=== PATIENT | male | born 1980 | race Caucasian/White ===

== ENCOUNTER 2018-05-22 12:03 | Emergency (ER) | payer OTHER ==
[2018-05-22 12:19] VITALS: TEMP 98
[2018-05-22] MEDS ORDERED: ONDANSETRON 4 MG/2 ML VIAL IVP STA (12:32)
[2018-05-22] MEDS ORDERED: SODIUM CHLORIDE 0.9% 1,000 ML IV STA (12:32)
[2018-05-22] MEDS ORDERED: MORPHINE SULFATE 4 MG/ML SYRINGE IV STA (12:33)
[2018-05-22 13:13] LABS: Appearance,Urine Clear (Clear); Basophils # (A) 0.1 k/uL (0-0.2); Basophils % (A) 0 %; Bilirubin,Urine Negative (Negative); Blood,Urine Negative (Negative); Color,Urine Yellow; Eosinophils # (A) 0.3 k/uL (0-0.7); Eosinophils % (A) 2 %; Glucose,Urine (UA) Negative (Negative); HCT 50.1 % (39.0-53.0); HGB 16.3 gm/dL (13.0-17.5); Ketones,Urine Negative (Negative); Leukocyte Esterase,Urine Negative (Negative); Lymphocytes # (A) 2.8 k/uL (1.0-4.8); Lymphocytes % (A) 20 %; MCH 29.1 pg (25.0-35.0); MCHC 32.5 g/dL (31.0-37.0); MCV 89.5 fL (80.0-100.0); Mean Platelet Volume 6.4; Monocytes # (A) 0.6 k/uL (0-1.0); Monocytes % (A) 4 %; Neutrophils % (A) 72 %; Nitrite,Urine Negative (Negative); PH, Urine 6.5 (5.0-8.0); Platelet Count 350 k/uL (150-450); Protein,Urine Negative (Negative); RBC 5.59 m/uL (4.30-5.90); RDW 12.5 % (11.5-15.5); Specific Gravity,Urine 1.015 (1.001-1.035); Urobilinogen,Urine <2.0 mg/dL (<2.0); WBC 13.8 k/uL (3.8-10.6)
--- NOTE | 2018-05-22 13:21 | ED ---
General Adult HPI - General Chief complaint: Fall Stated complaint: BACK INJURY FROM FALL DOWN 25 STEPS Source: patient, RN notes reviewed, old records reviewed Mode of arrival: ambulatory Limitations: no limitations - History of Present Illness Initial comments: 37-year-old male patient with no pertinent past medical history presents to ED after sustaining a fall 2 days ago. Patient states that mohel he slipped on carpet at the top of stairs, slid on his backside down approximately 20 stairs. Patient reports that when he received by her mother stairs he felt pain in his lumbar spine region. Patient denies any trauma to head or neck, use of blood thinners. Patient states that he had some paralumbar muscle spasms the next 2 days, which are primarily resolved. Patient does have mild amount of left thoracic back pain. Patient's primary complaint today is right lower quadrant abdominal pain. Patient states that the pain has been going on for approximately 36 hours. Patient states that it is localized to his right lower quadrant region. Patient has had some nausea without emesis. Patient denies fever/chills, diarrhea. Patient denies loss of bowel or bladder control , lower extremity weakness, paresthesias, saddle anesthesia, IV drug use. Systemic: Pt denies fatigue, myalgia, fever/chills, rash. Pt denies weakness, night sweats, weight loss. Neuro: Pt denies headache, visual disturbances, syncope or pre-syncope. HEENT: Pt denies ocular discharge or irritation, otalgia, rhinorrhea, pharyngitis or notable lymphadenopathy. Cardiopulmonary: Pt denies chest pain, SOB, heart palpitations, dyspnea on exertion. : Pt denies dysuria, burning w/ urination, frequency/urgency. Denies new onset urinary or bowel incontinence. MSK: Pt denies myalgia, loss of strength or function in extremities. Neuro: Pt denies new onset weakness, paresthesias. - Related Data Home Medications Medication Instructions Recorded Confirmed Aspirin/Acetaminophen/Caffeine 2 tab PO DAILY PRN 05/22/18 05/22/18 [Excedrin Extra Strength Caplet] Previous Rx's Medication Instructions Recorded Ibuprofen [Motrin] 600 mg PO Q6HR PRN #40 day 05/22/18 Allergies Allergy/AdvReac Type Severity Reaction Status Date / Time Penicillins Allergy Rash/Hives Verified 05/22/18 12:37 Review of Systems ROS Statement: Those systems with pertinent positive or pertinent negative responses have been documented in the HPI. ROS Other: All systems not noted in ROS Statement are negative. Past Medical History Past Medical History: Cancer Additional Past Medical History / Comment(s): Testicular History of Any Multi-Drug Resistant Organisms: None Reported Additional Past Surgical History / Comment(s): TESTICULAR CANCER- 2 YEARS AGO- SURGERY AT THAT TIME Past Psychological History: No Psychological Hx Reported Smoking Status: Current every day smoker Past Alcohol Use History: Occasional Past Drug Use History: Marijuana General Exam - General Exam Comments Initial Comments: Constitutional: NAD, AOX3, Pt has pleasant affect. HEENT: NC/AT, trachea midline, neck supple, no lymphadenopathy. Posterior pharynx non erythematous, without exudates. External ears appear normal, without discharge. Mucous membranes moist. Eyes PERRLA, EOM intact. There is no scleral icterus. No pallor noted. Cardiopulmonary: RRR, no murmurs, rubs or gallops, no JVD noted. Lungs CTAB in anterior and posterior [place]. No peripheral edema. Abdominal exam: Abdomen soft and non-distended. Abdomen mildly tender to palpation in RLQ at mcburneys point, psoas and rosvings sign negative. Bowel sounds active in LLQ. No hepatosplenomegaly. No ecchymosis Neuro: CN II-XII intact. No nuchal rigidity. full active ROM in cervical spine. MSK: No midline cervical, thoracic or lumbat tenderness. Mild L perithoracic tenderness to palpation. Mild L ulnar tenderness to palpation. Quadriceps and psoas strength 5/5. Achillies and patellar reflex 2/4 bilaterally. Pt ambulatory. No posterior calf tenderness bilaterally, homans sign negative bilaterally. Posterior tibialis and radial pulse +2 bilaterally. Sensation intact in upper and lower extremities. Full active ROM in upper and lower extremities. Limitations: no limitations Course Vital Signs 05/22/18 05/22/18 12:16 16:59 Temperature 98 F Pulse Rate 91 71 Respiratory 20 18 Rate Blood Pressure 142/88 132/80 O2 Sat by Pulse 97 100 Oximetry Medical Decision Making - Medical Decision Making 37-year-old male patient with no pertinent past medical history presents to ED after sustaining a fall 2 days ago. Patient states that mohel he slipped on carpet at the top of stairs, slid on his backside down approximately 20 stairs. Patient reports that when he received by her mother stairs he felt pain in his lumbar spine region. Patient denies any trauma to head or neck, use of blood thinners. Patient states that he had some paralumbar muscle spasms the next 2 days, which are primarily resolved. Patient does have mild amount of left thoracic back pain. Patient's primary complaint today is right lower quadrant abdominal pain. Patient states that the pain has been going on for approximately 36 hours. Patient states that it is localized to his right lower quadrant region. Patient has had some nausea without emesis. Physical exam displayed: Abdomen soft and non-distended. Abdomen mildly tender to palpation in RLQ at mcburneys point, psoas and rosvings sign negative. Bowel sounds active in LLQ. No midline cervical, thoracic or lumbat tenderness. Mild L perithoracic tenderness to palpation. Mild L ulnar tenderness to palpation. Quadriceps and psoas strength 5/5. Achillies and patellar reflex 2/4 bilaterally. Pt ambulatory. No posterior calf tenderness bilaterally, homans sign negative bilaterally. Posterior tibialis and radial pulse +2 bilaterally. Neuro exam wnl. No focal deficit or facial droop. Laboratory investigations revealed mildly elevated white blood cell count of 13.8, likely secondary to recent trauma. CMP was non-impressive. Amylase mildly elevated at 137. UA did not display acute pathology. Thoracic plain film displayed compression deformities of T11 and T12 without radiographic evidence of retropulsion. Plain film of bilateral ribs did not display acute pathology. R radius ulna plain film did not display any acute pathology. Plain film of chest displayed previously described vertebral compression fx, no acute cardiopulmonary process. CT abdomen and pelvis did not display any acute osseous process. It did display numerous fluid filled dilated small bowel loops, which may reflect an ileus, enteritis or partial obstruction. CT also demonstrated enlarged prostate. Pt tetanus updated. All findings were explained to patient at length. Patient is currently passing gas, had bowel movement yesterday, pain was resolved with analgesic, Zofran. Shared decision making, offered patient admission for treatment of possible small bowel obstruction. Patient declined admission, would rather monitor symptoms, follow up with his primary care provider. Patient verbalized understanding that he needs to return to ED immediately if he stops passing flatus, has no abdominal pain, has not had bowel movement. Additionally discussed findings of T11, T12 vertebral compression fracture at length patient. Explained to patient that he cannot do any strenuous activity, absolutely no lifting, no bending of thoracic spine until orthopedic follow-up. Patient was prescribed a TLSO brace that he will wear until orthopedic follow up. Pt verbalized understanding. Patient to follow up with PCP in 1-2 days. Patient to follow up with orthopedic consult in 1-2 days. Patient to return to ED if new s/sx devleop or if condition worsens in anyway. Case discussed in depth with Dr. Singletary. - Lab Data Result diagrams: 05/22/18 12:50 05/22/18 12:50 Lab Results 05/22/18 05/22/18 05/22/18 Range/Units 12:50 12:50 12:50 WBC 13.8 H (3.8-10.6) k/uL RBC 5.59 (4.30-5.90) m/uL Hgb 16.3 (13.0-17.5) gm/dL Hct 50.1 (39.0-53.0) % MCV 89.5 (80.0-100.0) fL MCH 29.1 (25.0-35.0) pg MCHC 32.5 (31.0-37.0) g/dL RDW 12.5 (11.5-15.5) % Plt Count 350 (150-450) k/uL Neutrophils % 72 % Lymphocytes % 20 % Monocytes % 4 % Eosinophils % 2 % Basophils % 0 % Neutrophils # 10.0 H (1.3-7.7) k/uL Lymphocytes # 2.8 (1.0-4.8) k/uL Monocytes # 0.6 (0-1.0) k/uL Eosinophils # 0.3 (0-0.7) k/uL Basophils # 0.1 (0-0.2) k/uL Sodium 140 (137-145) mmol/L Potassium 4.7 (3.5-5.1) mmol/L Chloride 106 (98-107) mmol/L Carbon Dioxide 25 (22-30) mmol/L Anion Gap 9 mmol/L BUN 13 (9-20) mg/dL Creatinine 0.85 (0.66-1.25) mg/dL Est GFR (CKD-EPI)AfAm >90 (>60 ml/min/1.73 sqM) Est GFR (CKD-EPI)NonAf >90 (>60 ml/min/1.73 sqM) Glucose 104 H (74-99) mg/dL Plasma Lactic Acid Osei 1.1 (0.7-2.0) mmol/L Calcium 9.9 (8.4-10.2) mg/dL Total Bilirubin 0.9 (0.2-1.3) mg/dL AST 44 (17-59) U/L ALT 48 (21-72) U/L Alkaline Phosphatase 62 (38-126) U/L Total Protein 8.3 H (6.3-8.2) g/dL Albumin 5.1 H (3.5-5.0) g/dL Amylase 137 H (30-110) U/L Lipase 176 (23-300) U/L Urine Color Urine Appearance (Clear) Urine pH (5.0-8.0) Ur Specific [place] (1.001-1.035) Urine Protein (Negative) Urine Glucose (UA) (Negative) Urine Ketones (Negative) Urine Blood (Negative) Urine Nitrite (Negative) Urine Bilirubin (Negative) Urine Urobilinogen (<2.0) mg/dL Ur Leukocyte Esterase (Negative) 05/22/18 Range/Units 12:50 WBC (3.8-10.6) k/uL RBC (4.30-5.90) m/uL Hgb (13.0-17.5) gm/dL Hct (39.0-53.0) % MCV (80.0-100.0) fL MCH (25.0-35.0) pg MCHC (31.0-37.0) g/dL RDW (11.5-15.5) % Plt Count (150-450) k/uL Neutrophils % % Lymphocytes % % Monocytes % % Eosinophils % % Basophils % % Neutrophils # (1.3-7.7) k/uL Lymphocytes # (1.0-4.8) k/uL Monocytes # (0-1.0) k/uL Eosinophils # (0-0.7) k/uL Basophils # (0-0.2) k/uL Sodium (137-145) mmol/L Potassium (3.5-5.1) mmol/L Chloride (98-107) mmol/L Carbon Dioxide (22-30) mmol/L Anion Gap mmol/L BUN (9-20) mg/dL Creatinine (0.66-1.25) mg/dL Est GFR (CKD-EPI)AfAm (>60 ml/min/1.73 sqM) Est GFR (CKD-EPI)NonAf (>60 ml/min/1.73 sqM) Glucose (74-99) mg/dL Plasma Lactic Acid [place]se[place] (0.7-2.0) mmol/L Calcium (8.4-10.2) mg/dL Total Bilirubin (0.2-1.3) mg/dL AST (17-59) U/L ALT (21-72) U/L Alkaline Phosphatase (38-126) U/L Total Protein (6.3-8.2) g/dL Albumin (3.5-5.0) g/dL Amylase (30-110) U/L Lipase (23-300) U/L Urine Color Yellow Urine Appearance Clear (Clear) Urine pH 6.5 (5.0-8.0) Ur Specific [place] 1.015 (1.001-1.035) Urine Protein Negative (Negative) Urine Glucose (UA) Negative (Negative) Urine Ketones Negative (Negative) Urine Blood Negative (Negative) Urine Nitrite Negative (Negative) Urine Bilirubin Negative (Negative) Urine Urobilinogen <2.0 (<2.0) mg/dL Ur Leukocyte Esterase Negative (Negative) Disposition Clinical Impression: Vertebral compression fracture, Abdominal pain Disposition: HOME SELF-CARE Condition: Fair Instructions: Vertebral Compression Fracture (ED) Additional Instructions: Patient to adhere to previously discussed treatment plan and will take medication(s) as directed. Patient to follow up with PCP in 1-2 days. Patient to return to ED if symptoms do not improve. Prescriptions: Ibuprofen [Motrin] 600 mg PO Q6HR PRN #40 day PRN Reason: Pain Is patient prescribed a controlled substance at d/c from ED?: No Referrals: None,Stated [Primary Care Provider] - 1-2 days Filiberto Alicea MD [Medical Doctor] - 1-2 days Time of Disposition: 16:46
[2018-05-22 13:22] LABS: ALT 48 U/L (21-72); AST 44 U/L (17-59); Albumin 5.1 g/dL (3.5-5.0); Alkaline Phosphatase 62 U/L (38-126); Amylase 137 U/L (30-110); Anion Gap 9 mmol/L; Blood Urea Nitrogen 13 mg/dL (9-20); Calcium 9.9 mg/dL (8.4-10.2); Carbon Dioxide 25 mmol/L (22-30); Chloride 106 mmol/L (98-107); Glucose 104 mg/dL (74-99); Lipase 176 U/L (23-300); Potassium 4.7 mmol/L (3.5-5.1); Sodium 140 mmol/L (137-145); Total Bilirubin 0.9 mg/dL (0.2-1.3); Total Protein 8.3 g/dL (6.3-8.2)
--- NOTE | 2018-05-22 14:20 | XR ---
EXAMINATION TYPE: XR chest 2V DATE OF EXAM: 05/22/2018 COMPARISON: NONE HISTORY: Chest pain after fall TECHNIQUE: Frontal and lateral views of the chest are obtained. FINDINGS: There is no focal air space opacity, pleural effusion, or pneumothorax seen. The cardiac silhouette size is within normal limits. Mild compression deformity is seen of the approximately T11 vertebral body. IMPRESSION: No acute cardiopulmonary process. Mild compression deformity of the approximately T11 ve rtebral body will be further assessed on the thoracic spine radiographs of the same date.
--- NOTE | 2018-05-22 14:23 | XR ---
EXAMINATION TYPE: XR thoracic spine 2V DATE OF EXAM: 05/22/2018 CLINICAL HISTORY: Fall with subsequent back pain TECHNIQUE: Frontal, lateral, and swimmer's view of thoracic spine are obtained. COMPARISON: None. FINDINGS: There is anterior wedging of the T11 vertebral body with vertebral body height loss of appr oximately 20% and vertebral body height loss of the inferior endplate of the T12 vertebral body of ap proximately 30%. The remainder of the thoracic spine demonstrate maintained vertebral body heights. A lignment is maintained throughout the thoracic spine. No radiographic evidence of retropulsion. Visua lized portions of the ribs are intact. IMPRESSION: Compression deformities of the T11 and T12 vertebral bodies without radiographic evidence of retropulsion presumed to be acute in this patient with a provided history of trauma.
--- NOTE | 2018-05-22 14:24 | XR ---
EXAMINATION TYPE: XR forearm RT DATE OF EXAM: 05/22/2018 CLINICAL HISTORY: Fall with right forearm pain TECHNIQUE: Two views of the right forearm are obtained. COMPARISON: None. FINDINGS: There is no acute fracture or dislocation seen in the right radius or ulna. Old healed fr acture deformity is seen of the ulnar styloid process. The right elbow and wrist joints appear within normal limits. The overlying soft tissue appears within normal limits. IMPRESSION: There is no acute fracture or dislocation seen in the right radius or ulna.
[2018-05-22] MEDS ORDERED: DIPH,PERTUS(ACELL)TETVAC-LF 0.5 ML VIAL IM ONE (14:25)
--- NOTE | 2018-05-22 14:34 | XR ---
EXAMINATION TYPE: XR ribs bilateral DATE OF EXAM: 05/22/2018 COMPARISON: Chest radiograph of the same date HISTORY: Chest pain, rib pain and back pain after fall. TECHNIQUE: Frontal and oblique views of the bilateral ribs were obtained. FINDINGS: There is no evidence of acute displaced fracture of the bilateral ribs nor callused healed rib fracture deformity. Visualized lungs are discussed on the chest radiograph of the same date. IMPRESSION: No acute displaced rib fracture nor healed callused rib fracture deformity.
--- NOTE | 2018-05-22 15:12 | CT ---
EXAMINATION TYPE: CT abdomen pelvis w con DATE OF EXAM: 05/22/2018 COMPARISON: 09/06/2014 HISTORY: Pain CT DLP: 725.2 mGycm Automated exposure control for dose reduction was used. CONTRAST: CT scan of the abdomen pelvis is performed , patient injected with 100 mL of Isovue 300. FINDINGS- LUNG BASES- No significant abnormality is appreciated. LIVER/GB- No gross abnormality is appreciated. PANCREAS- No gross abnormality is seen. SPLEEN- No gross abnormality is seen. ADRENALS- No gross abnormality is seen. KIDNEYS/BLADDER- no hydronephrosis nephrolithiasis or renal mass. BOWEL-nonspecific gas pattern. There are number of fluid-filled small bowel loops. No definite transi tion point.. Normal appendix. LYMPH NODES- No greater than 1cm abdominal or pelvic lymph nodes areappreciated. OSSEOUS STRUCTURES- No osseous destructive process. L1 limbus vertebra and prominent endplate Schmor l's nodes at the thoracolumbar junction at multiple levels stable from the prior CT scan. Spina bifid a occulta S1. OTHER- aorta of normal caliber. Prostate prominent in size. IMPRESSION- 1. Numerous fluid-filled dilated small bowel loops. Differential include an ileus, enteritis or parti al obstruction. Correlate clinically. 2. Prostate is enlarged.
[2018-05-22 17:00] VITALS: BP 132/80; PULSE 71; RESP 18
== END 2018-05-22 16:59 | disposition home or self-care (01) ==
LOC: EC 12:03
DX: S22.089A Unspecified fracture of T11-T12 vertebra, initial encounter for closed fracture (principal); D72.829 Elevated white blood cell count, unspecified; R74.8 Abnormal levels of other serum enzymes; N40.0 Benign prostatic hyperplasia without lower urinary tract symptoms; F17.200 Nicotine dependence, unspecified, uncomplicated; Z88.0 Allergy status to penicillin; Z85.47 Personal history of malignant neoplasm of testis; Z53.29 Procedure and treatment not carried out because of patient's decision for other reasons; Z23 Encounter for immunization; W10.9XXA Fall (on) (from) unspecified stairs and steps, initial encounter
CPT/HCPCS: 36415; 80053; 82150; 83605; 83690; 85025; 81003; 72070; 71110; 73090; 71046; 74177; 90715; 99284; 96374; 96375; 96361; 90471; J2270; J2405; Q9967

== ENCOUNTER 2018-06-08 14:56 | Emergency (ER) | payer OTHER ==
[2018-06-08 15:02] VITALS: RESP 18; TEMP 98.1
[2018-06-08] MEDS ORDERED: SODIUM CHLORIDE 0.9% 1,000 ML IV STA (15:37)
[2018-06-08] MEDS ORDERED: PANTOPRAZOLE 40 MG/10 ML VIAL IVP STA (15:37)
--- NOTE | 2018-06-08 15:37 | ED ---
General Adult HPI - General Chief complaint: Abdominal Pain Stated complaint: Black stool Time Seen by Provider: 06/08/18 15:10 Source: patient, RN notes reviewed Mode of arrival: ambulatory Limitations: no limitations - History of Present Illness Initial comments: 37-year-old male presents to the emergency department for a chief complaint of bloody stools. Patient states that the stool started yesterday. He states he has had 3 since that time. He describes the stools as a dark color in nature. Patient also complains of right-sided lower abdominal pain. Patient states he fell 3 weeks ago and the pain started at that time. Patient states the pain has gotten worse since then. He states he has been nauseous and has not been eating as much as normal. Patient has no other complaints at this time including shortness of breath, chest pain, abdominal pain, vomiting, headache, or visual changes. - Related Data Home Medications Medication Instructions Recorded Confirmed Ciprofloxacin HCl [Cipro] 500 mg PO BID 06/08/18 06/08/18 Dicyclomine [Bentyl] 10 mg PO TID 06/08/18 06/08/18 Docusate [Colace] 100 mg PO TID 06/08/18 06/08/18 metroNIDAZOLE [Flagyl] 500 mg PO BID 06/08/18 06/08/18 Previous Rx's Medication Instructions Recorded Dicyclomine [Bentyl] 20 mg PO TID PRN #20 tablet 06/08/18 Allergies Allergy/AdvReac Type Severity Reaction Status Date / Time adhesive tape Allergy Rash/Hives Verified 06/08/18 15:56 Penicillins Allergy Rash/Hives Verified 06/08/18 15:48 Review of Systems ROS Statement: Those systems with pertinent positive or pertinent negative responses have been documented in the HPI. ROS Other: All systems not noted in ROS Statement are negative. Past Medical History Past Medical History: Cancer Additional Past Medical History / Comment(s): Testicular History of Any Multi-Drug Resistant Organisms: None Reported Additional Past Surgical History / Comment(s): TESTICULAR CANCER- 2 YEARS AGO- SURGERY AT THAT TIME Past Psychological History: No Psychological Hx Reported Smoking Status: Current every day smoker Past Alcohol Use History: Occasional Past Drug Use History: Marijuana General Exam Limitations: no limitations General appearance: alert, in no apparent distress Head exam: Present: atraumatic, normocephalic, normal inspection Eye exam: Present: normal appearance, PERRL, EOMI. Absent: scleral icterus, conjunctival injection, periorbital swelling ENT exam: Present: normal exam, mucous membranes moist Neck exam: Present: normal inspection, full ROM. Absent: tenderness, meningismus, lymphadenopathy Respiratory exam: Present: normal lung sounds bilaterally. Absent: respiratory distress, wheezes, rales, rhonchi, stridor Cardiovascular Exam: Present: regular rate, normal rhythm, normal heart sounds. Absent: systolic murmur, diastolic murmur, rubs, gallop, clicks GI/Abdominal exam: Present: soft, tenderness (tenderness noted to the RLQ with minimal guarding), normal bowel sounds. Absent: distended, guarding, rebound, rigid Rectal exam: Present: normal inspection, other (Marleny JONES present for exam) Neurological exam: Present: alert, oriented X3, CN II-XII intact Psychiatric exam: Present: normal affect, normal mood Course Vital Signs 06/08/18 14:58 Temperature 98.1 F Pulse Rate 88 Respiratory 18 Rate Blood Pressure 147/83 O2 Sat by Pulse 97 Oximetry Medical Decision Making - Medical Decision Making 37-year-old male presents to the emergency department for a chief complaint of bloody stools. Patient states they are dark in nature so concerned him for blood. He complains of right-sided abdominal pain 3 weeks as well. He describes his pain as a cramping pain. On exam patient does have minimal right- sided abdominal tenderness. CBC CMP unremarkable. Hemoglobin 16.3. Occult stool is negative. CT shows large bowel fluid levels consistent with diarrhea, no free air or bowel obstruction. At this time patient will be treated with Bentyl with follow-up to GI or primary care. He will return if he has any worsening symptoms. - Lab Data Result diagrams: 06/08/18 16:06 06/08/18 16:06 Lab Results 06/08/18 06/08/18 06/08/18 Range/Units 16:06 16:06 16:06 WBC 9.6 (3.8-10.6) k/uL RBC 5.40 (4.30-5.90) m/uL Hgb 16.3 (13.0-17.5) gm/dL Hct 47.4 (39.0-53.0) % MCV 87.9 (80.0-100.0) fL MCH 30.1 (25.0-35.0) pg MCHC 34.3 (31.0-37.0) g/dL RDW 12.5 (11.5-15.5) % Plt Count 336 (150-450) k/uL Neutrophils % 67 % Lymphocytes % 25 % Monocytes % 5 % Eosinophils % 1 % Basophils % 0 % Neutrophils # 6.5 (1.3-7.7) k/uL Lymphocytes # 2.4 (1.0-4.8) k/uL Monocytes # 0.4 (0-1.0) k/uL Eosinophils # 0.1 (0-0.7) k/uL Basophils # 0.0 (0-0.2) k/uL Sodium 141 (137-145) mmol/L Potassium 5.1 (3.5-5.1) mmol/L Chloride 110 H (98-107) mmol/L Carbon Dioxide 23 (22-30) mmol/L Anion Gap 8 mmol/L BUN 7 L (9-20) mg/dL Creatinine 0.77 (0.66-1.25) mg/dL Est GFR (CKD-EPI)AfAm >90 (>60 ml/min/1.73 sqM) Est GFR (CKD-EPI)NonAf >90 (>60 ml/min/1.73 sqM) Glucose 102 H (74-99) mg/dL Calcium 9.6 (8.4-10.2) mg/dL Total Bilirubin 0.8 (0.2-1.3) mg/dL AST 49 (17-59) U/L ALT 46 (21-72) U/L Alkaline Phosphatase 50 (38-126) U/L Total Protein 7.7 (6.3-8.2) g/dL Albumin 4.8 (3.5-5.0) g/dL Amylase 127 H (30-110) U/L Lipase 190 (23-300) U/L Urine Color Light Yellow Urine Appearance Clear (Clear) Urine pH 7.0 (5.0-8.0) Ur Specific [place] 1.001 (1.001-1.035) Urine Protein Negative (Negative) Urine Glucose (UA) Negative (Negative) Urine Ketones Negative (Negative) Urine Blood Negative (Negative) Urine Nitrite Negative (Negative) Urine Bilirubin Negative (Negative) Urine Urobilinogen <2.0 (<2.0) mg/dL Ur Leukocyte Esterase Negative (Negative) Stool Occult Blood (Negative) 06/08/18 Range/Units 16:15 WBC (3.8-10.6) k/uL RBC (4.30-5.90) m/uL Hgb (13.0-17.5) gm/dL Hct (39.0-53.0) % MCV (80.0-100.0) fL MCH (25.0-35.0) pg MCHC (31.0-37.0) g/dL RDW (11.5-15.5) % Plt Count (150-450) k/uL Neutrophils % % Lymphocytes % % Monocytes % % Eosinophils % % Basophils % % Neutrophils # (1.3-7.7) k/uL Lymphocytes # (1.0-4.8) k/uL Monocytes # (0-1.0) k/uL Eosinophils # (0-0.7) k/uL Basophils # (0-0.2) k/uL Sodium (137-145) mmol/L Potassium (3.5-5.1) mmol/L Chloride (98-107) mmol/L Carbon Dioxide (22-30) mmol/L Anion Gap mmol/L BUN (9-20) mg/dL Creatinine (0.66-1.25) mg/dL Est GFR (CKD-EPI)AfAm (>60 ml/min/1.73 sqM) Est GFR (CKD-EPI)NonAf (>60 ml/min/1.73 sqM) Glucose (74-99) mg/dL Calcium (8.4-10.2) mg/dL Total Bilirubin (0.2-1.3) mg/dL AST (17-59) U/L ALT (21-72) U/L Alkaline Phosphatase (38-126) U/L Total Protein (6.3-8.2) g/dL Albumin (3.5-5.0) g/dL Amylase (30-110) U/L Lipase (23-300) U/L Urine Color Urine Appearance (Clear) Urine pH (5.0-8.0) Ur Specific [place] (1.001-1.035) Urine Protein (Negative) Urine Glucose (UA) (Negative) Urine Ketones (Negative) Urine Blood (Negative) Urine Nitrite (Negative) Urine Bilirubin (Negative) Urine Urobilinogen (<2.0) mg/dL Ur Leukocyte Esterase (Negative) Stool Occult Blood Negative (Negative) Disposition Clinical Impression: Abdominal pain Disposition: HOME SELF-CARE Condition: Good Instructions (If sedation given, give patient instructions): Abdominal Pain (ED ) Additional Instructions: Please follow up with GI or primary care in 1-2 days. Take Bentyl as needed for pain. Return to the emergency department if you have any worsening symptoms. Prescriptions: Dicyclomine [Bentyl] 20 mg PO TID PRN #20 tablet PRN Reason: Pain Is patient prescribed a controlled substance at d/c from ED?: No Referrals: James Rodgers MD [Primary Care Provider] - 1-2 days Caio Clarke MD [STAFF PHYSICIAN] - 1-2 days Time of Disposition: 17:28
[2018-06-08] MEDS ORDERED: MORPHINE SULFATE 4 MG/ML SYRINGE IVP STA (15:38)
[2018-06-08 16:18] LABS: Basophils % (A) 0 %; Eosinophils # (A) 0.1 k/uL (0-0.7); Eosinophils % (A) 1 %; HCT 47.4 % (39.0-53.0); HGB 16.3 gm/dL (13.0-17.5); Lymphocytes # (A) 2.4 k/uL (1.0-4.8); Lymphocytes % (A) 25 %; MCH 30.1 pg (25.0-35.0); MCHC 34.3 g/dL (31.0-37.0); MCV 87.9 fL (80.0-100.0); Mean Platelet Volume 6.9; Monocytes # (A) 0.4 k/uL (0-1.0); Monocytes % (A) 5 %; Neutrophils # (A) 6.5 k/uL (1.3-7.7); Neutrophils % (A) 67 %; Platelet Count 336 k/uL (150-450); RDW 12.5 % (11.5-15.5); WBC 9.6 k/uL (3.8-10.6)
[2018-06-08 16:22] LABS: Appearance,Urine Clear (Clear); Bilirubin,Urine Negative (Negative); Blood,Urine Negative (Negative); Color,Urine Light Yellow; Glucose,Urine (UA) Negative (Negative); Ketones,Urine Negative (Negative); Leukocyte Esterase,Urine Negative (Negative); Nitrite,Urine Negative (Negative); Protein,Urine Negative (Negative); Specific Gravity,Urine 1.001 (1.001-1.035); Urobilinogen,Urine <2.0 mg/dL (<2.0)
[2018-06-08 16:31] LABS: ALT 46 U/L (21-72); AST 49 U/L (17-59); Albumin 4.8 g/dL (3.5-5.0); Alkaline Phosphatase 50 U/L (38-126); Amylase 127 U/L (30-110); Anion Gap 8 mmol/L; Blood Urea Nitrogen 7 mg/dL (9-20); Calcium 9.6 mg/dL (8.4-10.2); Carbon Dioxide 23 mmol/L (22-30); Chloride 110 mmol/L (98-107); Glucose 102 mg/dL (74-99); Lipase 190 U/L (23-300); Potassium 5.1 mmol/L (3.5-5.1); Sodium 141 mmol/L (137-145); Total Bilirubin 0.8 mg/dL (0.2-1.3); Total Protein 7.7 g/dL (6.3-8.2)
--- NOTE | 2018-06-08 17:08 | CT ---
EXAMINATION TYPE: CT abdomen pelvis w con DATE OF EXAM: 06/08/2018 COMPARISON: 05/22/2018 HISTORY: RLQ pain and black tarry stool CT DLP: 494.6 mGycm Automated exposure control for dose reduction was used. TECHNIQUE: Helical acquisition of images was performed from the lung bases through the pelvis. CONTRAST: Performed without Oral Contrast and with IV Contrast, patient injected with 100 mL of Isovue 300. FINDINGS: Lung bases are clear. There is no pleural effusion. Heart size is normal. There is no pericardial eff usion. Liver spleen pancreas gallbladder appear normal. Bile ducts are not dilated. Stomach appears n ormal. There is no adrenal mass. Kidneys show satisfactory contrast opacification. There is no hydronephrosi s. Ureters are not dilated. Bladder distends smoothly. There is some prostatic calcification. There a re large bowel fluid levels down to the rectum. There is no sign of a bowel obstruction. There are no dilated loops. There is no retroperitoneal adenopathy. There is no mesenteric edema. There is no asc ites. There is no sign of free air. The appendix is partly filled with air and appears normal. Prosta te is enlarged for the patient's age and measures 4.5 cm. The lumbar vertebra show no acute fracture. There is 20% anterior wedging of L1 vertebra that appears old. IMPRESSION: LARGE BOWEL FLUID LEVELS CONSISTENT WITH DIARRHEA. NO FREE AIR. NO BOWEL OBSTRUCTION. THERE IS CLEARI NG OF THE DISTENDED SMALL BOWEL COMPARED TO OLD EXAM. Enlarged prostate.
[2018-06-08 18:06] VITALS: BP 108/64; PULSE 76
[2018-06-08] MEDS ORDERED: DICYCLOMINE 20 MG TAB PO STA (18:15)
== END 2018-06-08 18:21 | disposition home or self-care (01) ==
LOC: EC 14:56
DX: R10.30 Lower abdominal pain, unspecified (principal); R11.0 Nausea; K92.1 Melena; F17.200 Nicotine dependence, unspecified, uncomplicated; Z85.47 Personal history of malignant neoplasm of testis; Z98.890 Other specified postprocedural states; Z79.899 Other long term (current) drug therapy; Z88.0 Allergy status to penicillin; Z91.048 Other nonmedicinal substance allergy status
CPT/HCPCS: 36415; 80053; 82150; 83690; 85025; 82272; 81003; 74177; 99284; 96374; 96375; 96361 ×2; J2270; C9113; Q9967

== ENCOUNTER → 2018-07-07 | Outpatient (CLI) | payer OTHER ==
--- NOTE | 2018-07-07 11:24 | CT ---
EXAMINATION TYPE: CT abdomen pelvis w con DATE OF EXAM: 07/07/2018 COMPARISON: 06/08/2018 HISTORY: 37-year-old male with and neuritis, RLQ pain TECHNIQUE: Contiguous axial scanning of the abdomen and pelvis following administration of 100 ml Iso susana 300 IV contrast. Delayed images through the kidneys and coronal/sagittal reconstructions perform ed. CT DLP: 337.7 mGycm Automated exposure control for dose reduction was used. FINDINGS: Heart normal size without pericardial effusion. Tiny hiatal hernia. Some strandy atelectasis at the p osterior lung bases without pleural effusion. No focal lesion or biliary ductal dilatation. Portal venous system is patent. Gallbladder, adrenal glands, kidneys, spleen, and pancreas appear within normal limits. Some prominent jejunal loops in the left side of the abdomen measuring up to 3.5 cm no transition poi nt. These loops show mild generalized fold thickening. No mesenteric or retroperitoneal lymphadenopathy. Oral contrast has progressed into the proximal sigmoid. Normal appendix. No pericolonic inflammatory change appreciated. Bladder is distended. Prostate gland mildly enlarged at 4.5 cm wide. No abnormal fluid collection in the pelvis or evidence of pelvic lymphadenopathy. Bones: No osseous destructive process. Stable limbus vertebra of L1 and mild superior endplate deformity of T12 with Schmorl's node likely sequela of remote injury. IMPRESSION: 1. SOME PATULOUS JEJUNAL LOOPS IN THE LEFT SIDE OF THE ABDOMEN MEASURING UP TO 3.5 CM WITH SOME CORRE SPONDING GENERALIZED JEJUNAL FOLD THICKENING. CORRELATE FOR A MILD NONSPECIFIC ENTERITIS. NO TRANSITI ON POINT TO SUGGEST OBSTRUCTION. ORAL CONTRAST HAS REACHED THE PROXIMAL SIGMOID. 2. MILD PROSTATOMEGALY (4.5 CM WIDE). 3. TINY HIATAL HERNIA.
== END | disposition home or self-care (01) ==
LOC: RADCTMAIN 08:24
PROVIDERS: ATTEND Surgery
DX: K63.89 Other specified diseases of intestine (principal); N40.0 Benign prostatic hyperplasia without lower urinary tract symptoms
CPT/HCPCS: 74177; Q9967

== ENCOUNTER 2018-07-16 11:49 | Day surgery (SDC) | payer OTHER ==
[2018-07-15 09:43] VITALS: BMI 23.7
[~2018-07-16 11:49] MED LIST: LACTATED RINGERS 1,000 ML IV SCH; LIDOCAINE 1% 20 ML VIAL (10MG/ML) FOR IV START INTRADERMA PRN
[2018-07-16 12:25] VITALS: RESP 18; TEMP 98.2
[2018-07-16] MEDS ORDERED: LIDOCAINE 1% INJ 10MG/ML (20 ML MDV) ONE (12:39)
[2018-07-16] MEDS ORDERED: fentaNYL (PF) 50 MCG/ML 2 ML AMP ONE (12:39)
[2018-07-16] MEDS ORDERED: PROPOFOL 10 MG/ML 20 ML VIAL IV ONE (12:39)
--- NOTE | 2018-07-16 13:45 | P.PCN ---
Date of Procedure: 07/16/18 Description of Procedure: Brief history: 37-year-old male with a past medical history of testicular cancer follows up for outpatient endoscopic evaluation after being seen in the clinic. His complaints were abdominal pain which has been present for a long time but worse over the past 2 months after a fall. Pain was in the right lower quadrant, dull and achy and [place] linear in severity. He denies any blood per rectum. No family history of colon cancer or IBD. Patient also reported intermittent solid food dysphagia with associated intermittent reflux. The scan of the abdomen in the emergency department at findings of possible jejunal enteritis and a small hiatal hernia. Procedure performed: Esophagogastroduodenoscopy with biopsy Colonoscopy with biopsy Estimated blood loss: Minimal. Preoperative diagnosis: Esophageal dysphagia, abdominal pain Anesthesia: MAC Procedure: After informed consent was obtained from the patient was brought into the endoscopy unit and IV sedation was administered by anesthesia under continuous monitoring. Initially upper endoscopy was done. The Olympus GF 190 video endoscope was inserted inserted into the mouth and esophagus intubated without any difficulty and was gradually advanced into the stomach and duodenum and carefully examined. The bulb and second part of the duodenum were significant for mild scattered erythema suggestive of duodenitis with biopsies taken. The scope was then withdrawn into the stomach adequately insufflated with air and upon careful examination the antrum and body, cardia and fundus appeared normal except for some mild scattered erythema in the antrum and body suggestive of mild gastritis with biopsies taken. A small hiatal hernia was noted. The scope was then withdrawn into the esophagus. The GE junction was located at 40 cm to the incisors. It appeared regular with no erythema erosions or ulcerations. Mid esophageal biopsies taken to rule out eosinophilic esophagitis. Rest of the esophagus appeared normal. Patient tolerated the procedure well. At this time the patient continued to remain sedation. Initial digital rectal examination was normal. Olympus CF 190 video colonoscope was then inserted into the rectum and gradually advanced to the cecum without any difficulty. Careful examination was performed as the scope was gradually being withdrawn. The prep was excellent. The cecum, ascending colon, transverse colon, descending colon, sigmoid colon and rectum appeared normal. Random biopsies of the right colon, transverse colon and left colon were taken. Retroflexion was performed in the rectum and no lesions were noted. Patient tolerated the procedure well. Impression: 1. Duodenitis, biopsies. Mild gastritis antrum and body, biopsied. Hiatal hernia. Mid esophageal, biopsies. 2. Normal-appearing colon. Random biopsies of the right colon, transverse colon and left colon. Recommendations: Findings of this examination were discussed with the patient as well as significant other. Okay to resume diet. Continue medications as prescribed. Tommy mak up with gastroenterology for continued symptom management and results of biopsies.
[2018-07-16 13:57] VITALS: BP 114/76; PULSE 78
== END 2018-07-16 14:43 | disposition home or self-care (01) ==
LOC: ORWHC2ENDO 11:49
PROVIDERS: ATTEND Internal Medicine
DX: K29.50 Unspecified chronic gastritis without bleeding (principal); K21.0 Gastro-esophageal reflux disease with esophagitis; K44.9 Diaphragmatic hernia without obstruction or gangrene; F17.200 Nicotine dependence, unspecified, uncomplicated; K29.80 Duodenitis without bleeding; Z88.0 Allergy status to penicillin; Z79.899 Other long term (current) drug therapy; Z85.47 Personal history of malignant neoplasm of testis; Z91.048 Other nonmedicinal substance allergy status
CPT/HCPCS: 88305; 45380; 43239; J2001; J3010; J2704

== ENCOUNTER 2021-07-31 15:17 | Emergency (ER) | payer OTHER ==
[2021-07-31 15:22] VITALS: RESP 18
[2021-07-31] MEDS ORDERED: GABAPENTIN 300 MG CAP PO STA (18:06)
--- NOTE | 2021-07-31 18:33 | ED ---
General Adult HPI - General Chief complaint: Skin/Abscess/Foreign Body Stated complaint: rash Time Seen by Provider: 07/31/21 17:43 Source: patient Mode of arrival: ambulatory Limitations: no limitations - History of Present Illness Initial comments: Patient is a 40-year-old male presenting with chief complaint of rash. Patient states that 4 days ago he began feeling a painful sharp sensation on the skin of the left-sided back. After about a day he began to notice a red "bumpy" rash that was leaking clear oily fluid. States that the rash is intensely painful. Pain is unresponsive to Motrin and Tylenol. Patient states that he did have chickenpox when he was younger. Patient denies any vision changes, chest pain, shortness of breath, cough, hemoptysis, ear pain, eye pain, fever, chills, nausea, vomiting, diarrhea, abdominal pain, hematochezia, hematemesis. - Related Data Home Medications Medication Instructions Recorded Confirmed Docusate [Colace] 100 mg PO TID PRN 06/08/18 07/16/18 Previous Rx's Medication Instructions Recorded Gabapentin [Neurontin] 300 mg PO BID 3 Days #6 cap 07/31/21 valACYclovir HCL [Valtrex] 1,000 mg PO Q8HR 7 Days #21 tab 07/31/21 Allergies Allergy/AdvReac Type Severity Reaction Status Date / Time adhesive tape Allergy Rash/Hives Verified 07/15/18 09:33 Penicillins Allergy Rash/Hives Verified 07/15/18 09:33 Review of Systems ROS Statement: Those systems with pertinent positive or pertinent negative responses have been documented in the HPI. ROS Other: All systems not noted in ROS Statement are negative. Past Medical History Past Medical History: Cancer Additional Past Medical History / Comment(s): intermittent nausea and Abdominal pain for 2 mos,seen bleeding at times with stools, thinks has hemorrhoids,Testicular 2013 or 2014-received chemo for 3 mos History of Any Multi-Drug Resistant Organisms: None Reported Additional Past Surgical History / Comment(s): TESTICULAR CANCER-testicle removed Past Anesthesia/Blood Transfusion Reactions: No Reported Reaction Past Psychological History: No Psychological Hx Reported Smoking Status: Current every day smoker Past Alcohol Use History: Rare Past Drug Use History: Marijuana - Past Family History Mother Family Medical History: No Reported History General Exam Limitations: no limitations General appearance: alert, in no apparent distress Head exam: Present: atraumatic, normocephalic, normal inspection Eye exam: Present: normal appearance, PERRL, EOMI, other (No gross abnormalities). Absent: scleral icterus, conjunctival injection, periorbital swelling ENT exam: Present: normal exam, mucous membranes moist, TM's normal bilaterally Neck exam: Present: normal inspection Respiratory exam: Present: normal lung sounds bilaterally. Absent: respiratory distress, wheezes, rales, rhonchi, stridor Cardiovascular Exam: Present: regular rate, normal rhythm, normal heart sounds. Absent: systolic murmur, diastolic murmur, rubs, gallop, clicks Back exam: Present: full ROM, rash noted (2 large patches of red vesicular rash on the left side of the back, tender to palpation) Neurological exam: Present: alert, oriented X3, CN II-XII intact Psychiatric exam: Present: normal affect, normal mood Skin exam: Present: warm, dry, intact, normal color. Absent: rash Course Vital Signs 07/31/21 07/31/21 15:20 18:39 Temperature 97.8 F 98.2 F Pulse Rate 97 78 Respiratory 18 18 Rate Blood Pressure 136/75 130/68 O2 Sat by Pulse 98 98 Oximetry Medical Decision Making - Medical Decision Making She is a 40-year-old male presenting with chief complaint of rash. About 4 days ago he began experiencing intense sharp pain on the right side of the back. The pain is unresponsive to Motrin and Tylenol. About a day later he began noticing 2 red patches that were "bumpy" and leaking clear fluid. Patient states that he did have Hersel as a child and has not received a shingles vaccine before. On exam there are 2 patches of erythematous vesicular rash along the right side of the back that clearly follow a dermatome. Gross inspection of the eye shows no abnormalities, no lesions inside the ears. Patient is not complaining of any cough, chest pain, shortness of breath, fever, chills. Patient was given one dose of Neurontin 300 mg here in the ER. He was prescribed Valtrex 1 g 3 times a day for 7 days and given 3 days worth of Neurontin 300 mg twice a day as needed for pain control. Take medication as prescribed. Follow-up with PCP in one to 2 days. I educated the patient on return parameters. Answered all questions. Patient conveyed verbal understanding and agreed to the plan. My attending was Dr. Harkins. Disposition Clinical Impression: Shinlloyd Disposition: HOME SELF-CARE Condition: Good Instructions (If sedation given, give patient instructions): Teri (ED) Prescriptions: Gabapentin [Neurontin] 300 mg PO BID 3 Days #6 cap valACYclovir HCL [Valtrex] 1,000 mg PO Q8HR 7 Days #21 tab Is patient prescribed a controlled substance at d/c from ED?: Yes When asked, does pt state using other controlled substances?: No If prescribed controlled substance>3 days was MAPS reviewed?: Prescribed <3 Days (prescribed gabapentin, not opioid) Referrals: James Rodgers MD [Primary Care Provider] - 1-2 days Time of Disposition: 18:35
[2021-07-31 18:40] VITALS: BP 130/68; PULSE 78; TEMP 98.2
== END 2021-07-31 18:39 | disposition home or self-care (01) ==
LOC: EC 15:17
DX: B02.9 Zoster without complications (principal); F17.200 Nicotine dependence, unspecified, uncomplicated; Z88.0 Allergy status to penicillin; Z91.048 Other nonmedicinal substance allergy status
CPT/HCPCS: 99282